=== PATIENT | female | born 1945 | race Caucasian/White ===

== ENCOUNTER 2021-11-10 11:12 | Observation (INO) | payer MEDICARE ==
[~2021-11-10] VITALS: Ht 157.5 cm; Wt 89.9 kg
[2021-11-10] VITALS (23 sets, daily range): BP systolic 116–170; BP diastolic 42–79
[~2021-11-10 11:12] MED LIST: ASPI-842 PO; ATOR40TA PO; BUDE10.2 INH; BUPIVACAINE liposomal/PF 13.3 MG/ML vial IM ONE; CHOL10002 PO; DOCU-323 PO; DULO60CA65 PO; ENAL10TA78 PO; HYDR-4353 PO; LEVO75TA PO; LIDOcaine 1% 30ml preserv. free vial ONE; MECL-159 PO; MELO-100 PO; METF750T46 PO; MOME17SP5 BOTHNARES; MULT-1166 PO; MULT-620 PO; POLY1530 PO; PREG100C PO; PREVCR VG; SUCR1TAB34 PO; VITA1TAB20 PO; ceFAZolin inj. 2,000 MG in dextrose 5%-water 100 ML IV ONE; famotidine 20mg tablet PO ONE
[2021-11-10 13:17] LABS: BASOPHILS # (AUTO) 0.1 X10'3 (0-0.2); BASOPHILS % (AUTO) 0.9 % (0-1); EOSINOPHILS # (AUTO) 0.5 X10'3 (0-0.9); EOSINOPHILS % (AUTO) 6.1 % (0-6); LYMPHOCYTES # (AUTO) 1.3 X10'3 (1.1-4.8); LYMPHOCYTES % (AUTO) 16.9 % (21-51); MEAN CORPUSCULAR HEMOGLOBIN 30.4 PG (27.0-31.0); MEAN CORPUSCULAR HGB CONC 33.2 g/dL (33.0-36.5); MEAN CORPUSCULAR VOLUME 91.7 FL (78-98); MEAN PLATELET VOLUME 8.6 FL (7.4-10.4); MONOCYTES # (AUTO) 0.6 X10'3 (0-0.9); MONOCYTES % (AUTO) 7.3 % (2-12); NEUTROPHILS # (AUTO) 5.5 X10'3 (1.8-7.7); NEUTROPHILS % (AUTO) 68.8 % (42-75); PRE OP HEMATOCRIT 37.5 % (35.0-45.0); PRE OP HEMOGLOBIN 12.5 g/dL (12.0-16.0); PRE OP PLATELET COUNT 189 X10'3 (140-440); RED BLOOD COUNT 4.09 X10'6 (4.20-5.60)
[2021-11-10] MEDS: ringers solution, lacted 1,000 ML IV SCH (13:25)
[2021-11-10 13:31] LABS: ALANINE AMINOTRANSFERASE 26 U/L (12-78); ALBUMIN 3.5 G/DL (3.4-5.0); ALBUMIN/GLOBULIN RATIO 1.1 (1.1-1.5); ALKALINE PHOSPHATASE 57 IU/L (46-116); ANION GAP 8 (8-16); ASPARTATE AMINO TRANSFERASE 18 U/L (10-37); BILIRUBIN,TOTAL 0.3 MG/DL (0.1-1.0); BLOOD UREA NITROGEN 22 MG/DL (7-18); BUN/CREATININE RATIO 31.4 (6.6-38.0); CALCIUM 8.6 MG/DL (8.5-10.1); CHLORIDE 104 MMOL/L (99-107); GLUCOSE 142 MG/DL (70-104); POTASSIUM 4.3 MMOL/L (3.5-5.1); SODIUM 141 MMOL/L (135-145); TOTAL CARBON DIOXIDE 28.7 MMOL/L (24-32); TOTAL PROTEIN 6.6 G/DL (6.4-8.2); eGFR 81 ML/MIN
[2021-11-10] MEDS ORDERED: sevoflurane 250ml liquid IH ONE (14:31)
[2021-11-10] MEDS ORDERED: fentaNYL /PF 50mcg/ml 5ml ampule ONE (14:37)
[2021-11-10] MEDS ORDERED: midazolam 1 mg/ML 2ml injection ONE (14:37)
[2021-11-10] MEDS ORDERED: propofol inj 20 ML IV ONE (15:12)
[2021-11-10] MEDS ORDERED: rocuronium 10mg/ml inj IV ONE (15:12)
[2021-11-10] MEDS ORDERED: LIDOcaine 1%/PF 5ML 10 MG/ML VIAL ONE ×2 (15:12)
[2021-11-10] MEDS ORDERED: ondansetron/PF 4mg/2ml inj ONE (15:12)
[2021-11-10] MEDS ORDERED: dexamethasone sod phosphate 4mg/ml inj. ONE (15:12)
[2021-11-10] MEDS: BUPIVAcaine/PF 2.5 mg/ml (0.25%) 30ml vial ONE ×2 (15:18→15:19)
[2021-11-10] MEDS ORDERED: glycopyrrolate 0.2mg/ml inj ONE (15:59)
[2021-11-10] MEDS ORDERED: neostigmine methylsulfate 1 MG/ML 10ml vial ONE (15:59)
[2021-11-10] MEDS ORDERED: PER5325T PO (16:13)
[2021-11-10] MEDS ORDERED: proCHLORperazine 10 MG/2 ml inj IV PRN (16:15)
[2021-11-10] MEDS ORDERED: ondansetron/PF 4mg/2ml inj IV PRN ×2 (16:15→18:15)
[2021-11-10] MEDS ORDERED: hydrALAZINE 20mg/ml inj. IV PRN (16:15)
[2021-11-10] MEDS ORDERED: meperidine/PF 25mg/ml syringe IV PRN (16:15)
[2021-11-10] MEDS ORDERED: HYDROmorphone/PF 0.2 MG/ML SYRINGE IV PRN ×2 (16:15)
[2021-11-10] MEDS ORDERED: labetalol 20mg/4ml (5mg/ml) syringe IV PRN (16:15)
[2021-11-10] MEDS ORDERED: acetaminophen 1,000mg/100ml IV 100 ML IV PRN (16:15)
[2021-11-10] MEDS ORDERED: morphine 2 MG/ML inj. syringe IV PRN (16:15)
[2021-11-10] MEDS ORDERED: ketorolac tromethamine 15mg/ml inj. IV ONE (16:15)
[2021-11-10] MEDS ORDERED: ringers solution, lacted 1,000 ML IV SCH (16:15)
[2021-11-10] MEDS ORDERED: morphine 4 MG/ML inj SYRINge IV PRN (16:15)
--- NOTE | 2021-11-10 17:20 | NUR ---
pt assisted getting dressed, pt ambulated with assistance to the bathroom, prompted todeep breath and cough while splinting her abdomen. pt was able to urine
--- NOTE | 2021-11-10 17:34 | NUR ---
Received from OR via stretcher, accompanied by Anesthesiologist and report given by Anesthesiologist. PATIENT is drowsy but easily awakens to verbal stimuli, A&OX4, complains of minimal abdominal PAIN, V/S WNL, SCD ON , PIV 20G RUE, DRESSING is bandaids to abdominal area, abdominal binder in place, dressings are dry and intact
[2021-11-10] MEDS: oxyCODONE/APAP 5-325mg tablet PO PRN ×2 (17:43→21:43)
--- NOTE | 2021-11-10 17:50 | NUR ---
pt medicated and given jello and ice water, incentive spirometry given and instructions on how to use, pt was able to return demonstration use of IS
--- NOTE | 2021-11-10 18:08 | NUR ---
pts o2 sat remains in the high 80's , Dr Jauregui called and informed of pts condition. decision to admit pt, nursing territory supervisor notified, awaiting bed assignment
--- NOTE | 2021-11-10 18:13 | NUR ---
and son allowed in to see pt in recovery room o2 at 4 ltr nasal cannula applied, o2 sats up to 95
[2021-11-10] MEDS ORDERED: normal saline 1000ml 1,000 ML IV SCH (18:15)
[2021-11-10] MEDS ORDERED: naloxone 0.4 mg/ml inj IV PRN (18:15)
[2021-11-10] MEDS ORDERED: meclizine 12.5mg tablet PO PRN (18:20)
[2021-11-10] MEDS: HYDROmorph/NS 0.2 mg/ml PCA 100 ML IV SCH ×4 (19:00→23:00)
[2021-11-10] MEDS ORDERED: docusate sod 100mg capsule PO SCH (20:00)
[2021-11-10] MEDS: pregabalin 25mg capsule PO SCH (21:44)
[2021-11-10] MEDS: METFORMIN HCL 1000 MG PO SCH (21:45)
[2021-11-10] MEDS: sennosides/docusate sodium tablet PO SCH (21:46)
[2021-11-11] MEDS: HYDROmorph/NS 0.2 mg/ml PCA 100 ML IV SCH ×6 (01:00→11:00)
[2021-11-11] MEDS: ringers solution, lacted 1,000 ML IV SCH (01:12)
[2021-11-11] MEDS: oxyCODONE/APAP 5-325mg tablet PO PRN ×2 (01:44→08:59)
[2021-11-11 02:00] VITALS: BP 117/49
[2021-11-11] MEDS ORDERED: diphenhydrAMINE 25mg capsule PO ONE (02:35)
[2021-11-11 06:44] LABS: BASOPHILS % (AUTO) 0.4 % (0-1); EOSINOPHILS # (AUTO) 0.1 X10'3 (0-0.9); EOSINOPHILS % (AUTO) 1.3 % (0-6); HEMATOCRIT 34.4 % (35.0-45.0); HEMOGLOBIN 11.8 g/dl (12.0-16.0); LYMPHOCYTES # (AUTO) 0.9 X10'3 (1.1-4.8); LYMPHOCYTES % (AUTO) 8.6 % (21-51); MEAN CORPUSCULAR HEMOGLOBIN 31.2 PG (27.0-31.0); MEAN CORPUSCULAR HGB CONC 34.3 g/dL (33.0-36.5); MEAN CORPUSCULAR VOLUME 91.1 FL (78-98); MEAN PLATELET VOLUME 8.5 FL (7.4-10.4); MONOCYTES # (AUTO) 0.7 X10'3 (0-0.9); MONOCYTES % (AUTO) 6.6 % (2-12); NEUTROPHILS # (AUTO) 8.8 X10'3 (1.8-7.7); NEUTROPHILS % (AUTO) 83.1 % (42-75); PLATELET COUNT 197 X10'3 (140-440); RED BLOOD COUNT 3.78 X10'6 (4.20-5.60); RED CELL DISTRIBUTION WIDTH 13.6 % (11.5-14.5); WHITE BLOOD COUNT 10.5 X10'3 (4.5-11.0)
[2021-11-11 06:52] LABS: ALBUMIN 3.3 G/DL (3.4-5.0); ANION GAP 6 (8-16); BLOOD UREA NITROGEN 25 MG/DL (7-18); BUN/CREATININE RATIO 25.8 (6.6-38.0); CALCIUM 8.5 MG/DL (8.5-10.1); CHLORIDE 103 MMOL/L (99-107); CREATININE 0.97 MG/DL (0.40-0.90); GLUCOSE 133 MG/DL (70-104); POTASSIUM 5.1 MMOL/L (3.5-5.1); SODIUM 138 MMOL/L (135-145); eGFR 56 ML/MIN
[2021-11-11 07:10] VITALS: BP 130/55
[2021-11-11] MEDS: METFORMIN HCL 1000 MG PO SCH (08:00)
[2021-11-11] MEDS ORDERED: polyethylene glycol 3350 17gm powd pack PO SCH (08:00)
[2021-11-11] MEDS ORDERED: atorvastatin 20mg tablet PO SCH (08:00)
[2021-11-11] MEDS ORDERED: lisinopril 20mg tablet PO SCH (08:00)
[2021-11-11] MEDS ORDERED: levoTHYROXINE 75mcg tablet PO SCH (08:00)
[2021-11-11] MEDS ORDERED: aspirin 81mg, enteric-coated 1 TAB TABLET.DR PO SCH (08:00)
[2021-11-11] MEDS ORDERED: fluticasone nasal spray 16GM bottle NS SCH (08:00)
[2021-11-11] MEDS ORDERED: duloxetine 30mg CAPSULE.DR PO SCH (08:00)
[2021-11-11] MEDS: sennosides/docusate sodium tablet PO SCH (08:56)
[2021-11-11] MEDS: pregabalin 25mg capsule PO SCH (08:57)
[2021-11-11 10:00] VITALS: BP 116/50
[2021-11-11] MEDS ORDERED: oxyCODONE/APAP 5-325mg tablet PO ONE (11:25)
--- NOTE | 2021-11-11 11:50 | NUR ---
PATIENT STABLE AND APPROPRIATE FOR DISCHARGE HOME WITH FAMILY. ALL BELONGINGS GATHERED FROM ROOM AND PICKED UP FROM SECURITY. IV REMOVED, EXTRUDING PRESS OPERATOR REMOVED. ALL DISCHARGE INSTRUCTIONS AND EDUCATION GIVEN AND REVIEWED WITH PATIENT, ALL QUESTIONS ANSWERED. DRESSINGS CDI, ABDOMINAL BINDER IN PLACE. RX E-SCRIPTED TO PREFERRED PHARMACY.
== END 2021-11-11 11:50 | disposition home or self-care (01) ==
LOC: PAS 11:12 → UNDOADMOB 18:15 → ORTHO 4S 18:15
PROVIDERS: ADMIT Surgery; ATTEND Surgery
DX: K43.2 Incisional hernia without obstruction or gangrene (principal); Z20.822 Contact with and (suspected) exposure to COVID-19; I10 Essential (primary) hypertension; K66.0 Peritoneal adhesions (postprocedural) (postinfection); R09.02 Hypoxemia; E11.9 Type 2 diabetes mellitus without complications; E66.9 Obesity, unspecified; E03.9 Hypothyroidism, unspecified; J45.909 Unspecified asthma, uncomplicated; Z79.51 Long term (current) use of inhaled steroids; Z79.890 Hormone replacement therapy; Z79.899 Other long term (current) drug therapy
CPT/HCPCS: 36415; 49654; 80048; 80053; 82948; 85025; 87081; 87811; 93005; 94760; 96365; 96366; 96375; C1781; C9290; G0378; J0131; J0690; J0780; J1100; J1885; J2250; J2405; J2704; J2710; J3010; J3490; J7060; J7120; Q0163; A4215; A4615; A4618